=== PATIENT | male | born 1985 | race Caucasian/White ===

== ENCOUNTER → 2017-09-28 | Outpatient (CLI) | payer BC ==
[~2017-09-28] MED LIST: METFORMIN HCL500 MG PO; VICTOZA 3-0.6 MG/0.1 SQ
[2017-09-28 08:48] LABS: BASOPHILS # (AUTO) 0.1 (0.0-0.1); BASOPHILS % 0.5 % (0.0-1.0); EOSINOPHILS # (AUTO) 0.2 (0.0-0.4); EOSINOPHILS % 2.2 % (0.0-6.0); HEMATOCRIT 45.9 % (38.2-49.6); LYMPHOCYTES # (AUTO) 3.1 (1.0-3.2); LYMPHOCYTES % 30.7 % (18.0-39.1); MEAN CORPUSCULAR HEMOGLOBIN 29.6 pg (28-32); MEAN CORPUSCULAR HGB CONC 34.9 g/dL (31-35); MEAN CORPUSCULAR VOLUME 84.8 fL (81-99); MONOCYTES # (AUTO) 0.8 (0.2-0.8); MONOCYTES % 7.6 % (4.4-11.3); NEUTROPHILS % 58.6 % (38.7-80.0); PLATELET COUNT 213 x10e3/uL (140-360); RED BLOOD COUNT 5.41 x10e6/uL (4.3-5.7)
[2017-09-28 09:09] LABS: ALANINE AMINOTRANSFERASE 99 IU/L (0-55); ALBUMIN 4.1 g/dL (3.5-5.0); ALBUMIN/GLOBULIN RATIO 1.1 (0.8-2.0); ALKALINE PHOSPHATASE 86 IU/L (40-150); ANION GAP 14.1 mmol/L (8-16); BLOOD UREA NITROGEN 12 mg/dL (7-26); BUN/CREATININE RATIO 12 (6-25); CALCIUM 9.2 mg/dL (8.4-10.2); CARBON DIOXIDE 24 mmol/L (22-29); CHLORIDE 105 mmol/L (98-107); CHOL/HDL RATIO 4.7 (3.9-4.7); CHOLESTEROL 166 MD/DL (0-199); CREATININE, SERUM 0.97 mg/dL (0.72-1.25); EST GLOMERULAR FILTRATION RATE > 60 ML/MIN (60-); GLUCOSE 166 mg/dL (74-118); HDL CHOLESTEROL 35 MG/DL (40-60); LDL CHOLESTEROL 104 MG/DL (60-130); POTASSIUM 4.1 mmol/L (3.5-5.1); SODIUM 139 mmol/L (136-145); TRIGLYCERIDES 134 MG/DL (0-149)
[2017-09-28 09:29] LABS: FREE T4 (FREE THYROXINE) 1.17 ng/dL (0.9-1.8); THYROID STIMULATING HORMONE 1.579 uIU/mL (0.350-4.940)
== END ==
LOC: LAB 08:33
PROVIDERS: ATTEND Internal Medicine
DX: R53.83 Other fatigue (principal); E13.9 Other specified diabetes mellitus without complications; R74.0 Nonspecific elevation of levels of transaminase and lactic acid dehydrogenase [LDH]; E78.5 Hyperlipidemia, unspecified
CPT/HCPCS: 36415; 80053; 80061; 83036; 84439; 84443; 84479; 85025

== ENCOUNTER 2017-10-13 14:02 | Emergency (ER) | payer BC ==
[~2017-10-13] VITALS: Ht 180.3 cm; Wt 149.7 kg
[2017-10-13] MEDS ORDERED: SODIUM CHLORIDE 0.9% 1000ML 1,000 ML IV STA (14:12)
[2017-10-13] MEDS ORDERED: KETOROLAC TROMETHAMINE 30 MG/ML VIAL IV STA (14:12)
[2017-10-13] MEDS ORDERED: ONDANSETRON HCL INJ 2 MG/ML VIAL IV STA (14:12)
[2017-10-13 14:35] LABS: BILIRUBIN,URINE NEGATIVE (NEGATIVE); CLARITY,URINE CLEAR (CLEAR); COLOR,URINE YELLOW (YELLOW); KETONES,URINE NEGATIVE (NEGATIVE); LEUKOCYTE ESTERASE ,URINE NEGATIVE (NEGATIVE); NITRITE,URINE NEGATIVE (NEGATIVE); PROTEIN,URINE DIPSTICK NEGATIVE (NEGATIVE); URINE UROBILINOGEN 0.2 mg/dL (0.2 - 1)
[2017-10-13 14:42] LABS: BACTERIA,URINE RARE /HPF; RBC,URINE 0-5 /HPF (0-5); WBC,URINE (MAN) 0-5 /HPF (0-5)
[2017-10-13 14:55] LABS: BASOPHILS # (AUTO) 0.1 (0.0-0.1); BASOPHILS % 0.6 % (0.0-1.0); EOSINOPHILS # (AUTO) 0.2 (0.0-0.4); EOSINOPHILS % 1.5 % (0.0-6.0); HEMATOCRIT 47.1 % (38.2-49.6); HEMOGLOBIN 16.4 g/dL (14.0-18.0); LYMPHOCYTES # (AUTO) 3.5 (1.0-3.2); LYMPHOCYTES % 30.2 % (18.0-39.1); MEAN CORPUSCULAR HEMOGLOBIN 29.3 pg (28-32); MEAN CORPUSCULAR HGB CONC 34.8 g/dL (31-35); MEAN CORPUSCULAR VOLUME 84.1 fL (81-99); MONOCYTES # (AUTO) 0.9 (0.2-0.8); MONOCYTES % 7.8 % (4.4-11.3); NEUTROPHILS % 59.3 % (38.7-80.0); PLATELET COUNT 255 x10e3/uL (140-360)
[2017-10-13] MEDS ORDERED: MORPHINE SULFATE 5 MG/ML VIAL IV ONE (15:00)
[2017-10-13 15:06] LABS: ALANINE AMINOTRANSFERASE 134 IU/L (0-55); ALBUMIN 4.6 g/dL (3.5-5.0); ALBUMIN/GLOBULIN RATIO 1.2 (0.8-2.0); ALKALINE PHOSPHATASE 86 IU/L (40-150); ANION GAP 11.8 mmol/L (8-16); BLOOD UREA NITROGEN 12 mg/dL (7-26); BUN/CREATININE RATIO 14 (6-25); CARBON DIOXIDE 26 mmol/L (22-29); CHLORIDE 105 mmol/L (98-107); CREATININE, SERUM 0.84 mg/dL (0.72-1.25); EST GLOMERULAR FILTRATION RATE > 60 ML/MIN (60-); GLUCOSE 98 mg/dL (74-118); POTASSIUM 3.8 mmol/L (3.5-5.1); SODIUM 139 mmol/L (136-145)
[2017-10-13] MEDS ORDERED: MORPHINE SULFATE 2 MG/ML SYR IV ONE (15:20)
--- NOTE | 2017-10-13 16:06 | Diagnostic Imaging Report ---
PROCEDURE: CT ABDOMEN AND PELVIS WITHOUT CONTRAST TECHNIQUE: The abdomen and pelvis were scanned utilizing a multidetector helical scanner from the diaphragm to the lesser trochanter. No IV or oral contrast per stone protocol. Coronal and sagittal multiplanar reformations were obtained. COMPARISON: None. INDICATIONS: FLANK PAIN FINDINGS: ABSENCE OF INTRAVENOUS CONTRAST DECREASES SENSITIVITY FOR DETECTION OF FOCAL LESIONS AND VASCULAR PATHOLOGY. LOWER THORAX: Normal. HEPATOBILIARY: Diffuse hepatic steatosis. No focal hepatic lesions. No biliary ductal dilatation. SPLEEN: Moderate splenomegaly measuring 16.1 cm in AP dimension. PANCREAS: No focal masses or ductal dilatation. ADRENALS: No adrenal nodules. KIDNEYS/URETERS: No hydronephrosis, stones, or solid mass lesions. PELVIC ORGANS/BLADDER: Unremarkable. PERITONEUM / RETROPERITONEUM: No free air or fluid. LYMPH NODES: No lymphadenopathy. VESSELS: Unremarkable. GI TRACT: No distention or wall thickening. Normal appendix. BONES AND SOFT TISSUES: Unremarkable. Focal mild degenerative changes at L5-S1 with posterior disc osteophyte. Small bilateral containing inguinal hernias. IMPRESSION: 1. Diffuse hepatic steatosis. 2. Moderate splenomegaly. 3. No definite renal stones. Questionable developing stones. No hydronephrosis. Dictated by: Cheikh Pelaez M.D. on 10/13/2017 at 16:05 Electronically approved by: Cheikh Pelaez M.D. on 10/13/2017 at 16:05
[2017-10-13 16:29] VITALS: BP 121/73
== END 2017-10-13 17:02 | disposition home or self-care (01) ==
LOC: ER 14:02
DX: R10.9 Unspecified abdominal pain (principal); R11.0 Nausea; E11.9 Type 2 diabetes mellitus without complications; K75.81 Nonalcoholic steatohepatitis (NASH)
CPT/HCPCS: 36415; 74176; 80053; 81001; 85025; 96374; 99284; J1885; J2270; J2405; J7030

== ENCOUNTER → 2018-07-01 | Outpatient (CLI) | payer BC ==
[2018-07-01 09:40] LABS: BASOPHILS # (AUTO) 0.1 (0.0-0.1); BASOPHILS % 0.5 % (0.0-1.0); EOSINOPHILS # (AUTO) 0.2 (0.0-0.4); EOSINOPHILS % 2.4 % (0.0-6.0); HEMATOCRIT 46.8 % (38.2-49.6); HEMOGLOBIN 16.4 g/dL (14.0-18.0); LYMPHOCYTES # (AUTO) 2.7 (1.0-3.2); LYMPHOCYTES % 29.2 % (18.0-39.1); MEAN CORPUSCULAR HEMOGLOBIN 29.4 pg (28-32); MONOCYTES # (AUTO) 0.8 (0.2-0.8); MONOCYTES % 8.2 % (4.4-11.3); NEUTROPHILS # (AUTO) 5.5 (2.1-6.9); NEUTROPHILS % 59.4 % (38.7-80.0); PLATELET COUNT 276 x10e3/uL (140-360); RED BLOOD COUNT 5.57 x10e6/uL (4.3-5.7); RED CELL DISTRIBUTION WIDTH 12.9 % (11.7-14.4)
[2018-07-01 10:05] LABS: ALANINE AMINOTRANSFERASE 85 IU/L (0-55); ALBUMIN 4.2 g/dL (3.5-5.0); ALBUMIN/GLOBULIN RATIO 1.1 (0.8-2.0); ALKALINE PHOSPHATASE 95 IU/L (40-150); ANION GAP 14.3 mmol/L (8-16); BLOOD UREA NITROGEN 13 mg/dL (7-26); BUN/CREATININE RATIO 14 (6-25); CALCIUM 9.6 mg/dL (8.4-10.2); CARBON DIOXIDE 23 mmol/L (22-29); CHLORIDE 105 mmol/L (98-107); CREATININE, SERUM 0.93 mg/dL (0.72-1.25); EST GLOMERULAR FILTRATION RATE > 60 ML/MIN (60-); GLUCOSE 279 mg/dL (74-118); POTASSIUM 4.3 mmol/L (3.5-5.1); SODIUM 138 mmol/L (136-145)
[2018-07-01 10:27] LABS: THYROID STIMULATING HORMONE 1.149 uIU/mL (0.350-4.940)
== END ==
LOC: LAB 09:17
PROVIDERS: ATTEND Internal Medicine
DX: E13.9 Other specified diabetes mellitus without complications (principal)
CPT/HCPCS: 36415; 80053; 83036; 84436; 84443; 84479; 85025

== ENCOUNTER → 2018-07-21 | Outpatient (CLI) | payer BC | LOC: SLEEP 07-14 20:17 | PROVIDERS: ATTEND Internal Medicine | DX: G47.33 Obstructive sleep apnea (adult) (pediatric) (principal) | CPT/HCPCS: 95811 ==

== ENCOUNTER → 2020-05-15 | Outpatient (CLI) | payer BC ==
[2020-05-15 08:43] LABS: ALANINE AMINOTRANSFERASE 130 IU/L (0-55); ALBUMIN/GLOBULIN RATIO 1.1 (0.8-2.0); ALKALINE PHOSPHATASE 78 IU/L (40-150); ANION GAP 13.2 mmol/L (8-16); BLOOD UREA NITROGEN 10 mg/dL (7-26); BUN/CREATININE RATIO 11 (6-25); CALCIUM 9.1 mg/dL (8.4-10.2); CARBON DIOXIDE 25 mmol/L (22-29); CHLORIDE 105 mmol/L (98-107); CHOL/HDL RATIO 6.5 (3.9-4.7); CHOLESTEROL 234 MD/DL (0-199); CREATININE, SERUM 0.92 mg/dL (0.72-1.25); EST GLOMERULAR FILTRATION RATE > 60 ML/MIN (60-); GLUCOSE 198 mg/dL (74-118); HDL CHOLESTEROL 36 MG/DL (40-60); LDL CHOLESTEROL 149 MG/DL (60-130); POTASSIUM 4.2 mmol/L (3.5-5.1); SODIUM 139 mmol/L (136-145); TRIGLYCERIDES 245 MG/DL (0-149)
[2020-05-15 08:44] LABS: BASOPHILS % 0.5 % (0.0-1.0); EOSINOPHILS # (AUTO) 0.3 (0.0-0.4); EOSINOPHILS % 3.3 % (0.0-6.0); HEMATOCRIT 39.6 % (38.2-49.6); LYMPHOCYTES # (AUTO) 2.4 (1.0-3.2); LYMPHOCYTES % 32.4 % (18.0-39.1); MEAN CORPUSCULAR HEMOGLOBIN 34.9 pg (28-32); MEAN CORPUSCULAR HGB CONC 37.9 g/dL (31-35); MEAN CORPUSCULAR VOLUME 92.1 fL (81-99); MONOCYTES # (AUTO) 0.6 (0.2-0.8); MONOCYTES % 7.7 % (4.4-11.3); NEUTROPHILS # (AUTO) 4.2 (2.1-6.9); NEUTROPHILS % 55.8 % (38.7-80.0); PLATELET COUNT 148 x10e3/uL (140-360); RED CELL DISTRIBUTION WIDTH 16.3 % (11.7-14.4)
[2020-05-15 09:04] LABS: FREE THYROXINE INDEX 2.4486 (1.4-3.8); THYROID STIMULATING HORMONE 1.329 uIU/mL (0.350-4.940)
== END ==
LOC: LAB 07:58
PROVIDERS: ATTEND Internal Medicine
DX: E11.65 Type 2 diabetes mellitus with hyperglycemia (principal); I10 Essential (primary) hypertension; E78.5 Hyperlipidemia, unspecified; R53.83 Other fatigue; E66.01 Morbid (severe) obesity due to excess calories
CPT/HCPCS: 36415; 80053; 80061; 83036; 84436; 84443; 84479; 85025

== ENCOUNTER 2020-06-26 11:54 | Emergency (ER) | payer BC ==
[~2020-06-26] VITALS: Ht 180.3 cm; Wt 149.7 kg
--- NOTE | 2020-06-26 12:10 | Emergency Department Note ---
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 PT BEGAN HAVING SORE THROAT AND CONGESTION 5 DAYS SEASONER HAND. PT HAS NOW DEVELOPED HEADACHES AND BEGAN RUNNING FEVER TODAY. Historian: Patient Arrival Mode: Car Additional Treatment SEASONER HAND: IBUPROFEN 4 HRS SEASONER HAND Pulverizer Feeder Required: No Onset (how long ago): day(s) Location: Generalized Quality: fever Radiation: Reports non-radiation Severity: mild Onset quality: sudden Duration (how long): day(s) Timing of current episode: constant Progression: unchanged Chronicity: new Context: Denies recent illness, Denies recent surgery Relieving factors: none Exacerbating factors: none Associated symptoms: Reports denies other symptoms Treatments prior to arrival: none Past Medical/Family History Physician Review I have reviewed the patient's past medical and family history. Any updates have been documented here. Past Medical History Recent Fever: Yes Clinical Suspicion of Infectio: No New/Unexplained Change in Ment: No Other Medical History: SANDOVAL Other Surgery: TONSILLECTOMY Other Last Tetanus: UTD Review of Systems Review of Systems Constitutional: Reports fever EENTM: Reports no symptoms Cardiovascular: Reports no symptoms Respiratory: Reports no symptoms Gastrointestinal: Reports no symptoms Genitourinary: Reports no symptoms Musculoskeletal: Reports no symptoms Integumentary: Reports no symptoms Neurological: Reports no symptoms Psychological: Reports no symptoms Endocrine: Reports no symptoms Hematological/Lymphatic: Reports no symptoms Physical Exam Related Data Allergies: Coded Allergies: cefaclor (Verified Allergy, Unknown, 10/13/17) sulfamethoxazole (Verified Allergy, Unknown, 10/13/17) trimethoprim (Verified Allergy, Unknown, 10/13/17) Triage Vital Signs Vital Signs Date Time Temp Pulse Resp B/P (MAP) Pulse Ox O2 Delivery O2 Flow Rate FiO2 06/26/20 11:56 99.9 72 20 128/87 99 Room Air Vital signs reviewed: Yes Physical Exam CONSTITUTIONAL Constitutional: Present well-developed, Present well-nourished HENT HENT: Present normocephalic, Present atraumatic, Present oropharynx clear/moist, Present nose normal HENT L/R: Present left ext ear normal, Present right ext ear normal EYES Eyes: Reports PERRL, Reports conjunctivae normal NECK Neck: Present ROM normal PULMONARY Pulmonary: Present effort normal, Present breath sounds normal CARDIOVASCULAR Cardiovascular: Present regular rhythm, Present heart sounds normal, Present capillary refill normal, Present normal rate GASTROINTESTINAL Abdominal: Present soft, Present nontender, Present bowel sounds normal GENITOURINARY Genitourinary: Present exam deferred SKIN Skin: Present warm, Present dry MUSCULOSKELETAL Musculoskeletal: Present ROM normal NEUROLOGICAL Neurological: Present alert, Present oriented x 3, Present no gross motor or sensory deficits PSYCHOLOGICAL Psychological: Present mood/affect normal, Present judgement normal Assessment & Plan Medical Decision Making MDM 34-year-old male with past medical history significant for diabetes presents to the emergency department for fever. Concern for coronavirus due to high risk exposures at work. Will cope and swab him and if positive will enroll in antibody study. Patient appears well, vital signs stable, within except limits. He will not require hospitalization and he is appropriate for discharge. Assessment & Plan Final Impression: (1) Fever Depart Disposition: HOME, SELF-CARE Last Vital Signs Date Time Temp Pulse Resp B/P (MAP) Pulse Ox O2 Delivery O2 Flow Rate FiO2 06/26/20 11:56 99.9 72 20 128/87 99 Room Air Home Meds Reported Medications Metformin Hcl (METFORMIN HCL) 500 Mg Tablet, 1000 MG PO BID, #60 TAB 05/16/14 Liraglutide (VICTOZA 3-ZAY) 0.6 Mg/0.1 Ml Pen.injctr, 1 DOSE SQ DAILY 05/16/14 LIZBETH COTE MD Jun 26, 2020 12:10
--- OUTSIDE RECORDS SUMMARY | 2020-06-26 12:13 | XMS REPORT | Continuity of Care Document ---
Author Author [facility] t Organization [facility] Address [address] [place] [address] Phone Unavailable Care Team Providers Care Development And Planning Engineer Name Role Phone DOMONIQUE FU MD PCP Linda HOLT Attphyrebeca Unavailable Payers Payer Name Policy Type Policy Number Effective Date Expiration Date Rebeca redmond [facility] [id number] 2013 00:00:00 [facility] Problems This patient has no known problems. Allergies, Adverse Reactions, Alerts Allergy Name Allergy Type Status Severity Reaction(s) Onset Date Inacti ve Date Treating Clinician Comments Source Cefaclor Allergy to Substance Active 2017-10-13 00:00:00 [facility] Sulfamethoxazole Allergy to Substance Active 2017-10-13 00: 00:00 [facility] Trimethoprim Allergy to Substance Active 2017-10-13 00:00:0 0 [facility] Medications Ordered Medication Name Filled Medication Name Start Date Stop Da te Current Medication? Ordering Clinician Indication Dosage Frequency Signature (SIG) Comments Components Source Liraglutide (Victoza 3-Fernando) 0.6 Mg/0.1 Ml Pen.injctr L iraglutide (Victoza 3-Fernando) 0.6 Mg/0.1 Ml Pen.injctr Yes 1 Daily [facility] Metformin Hcl 500 Mg Tablet Metformin Hcl 500 Mg Tablet Yes 1000 Twice A Day [facility] Procedures Procedure Date / Time Performed Performing Clinician Ata e CT of abdomen and pelvis without contrast 2017-10-13 00:00:00 KATARZYNA ESTRADA [facility] Encounters Start Date/Time End Date/Time Encounter Type Admission Type Attendi [facility] Facility Care Department Encounter ID Source 2017-10-13 14:02:00 2017-10-13 17:02:00 Departed Emergency Room ER ALESSANDRA HOLT [facility] [id number] [facility] 2017-09-28 08:33:00 2017-09-28 08:33:00 Registered Clinic [facility] [id number] [facility] Results Test Description Test Time Test Comments Results Result Comments Source Sodium Level 2017-10-13 15:08:00 Test Item Sodium Level (test code = 2951-2) 139 136-145 [facility]Potassium Oiaeq7575-92-42 15:08:00* Test Item Value Reference Range Interpretation Comments Potassium Level (test code = 2823-3) 3.8 3.5-5.1 [facility]Chloride Xvewl5508-87-24 15:08:00* Test Item Value Reference Range Interpretation Comments Chloride Level (test code = 2075-0) 105 98-107 [facility] HospitalCarbon Dioxide Jtsya2447-04-55 15:08:00* Test Item Value Reference Range Interpretation Comments Carbon Dioxide Level (test code = 2028-9) 26 22-29 [facility] HospitalAnion Oju6022-74-94 15:08:00* Test Item Value Reference Range Interpretation Comments Anion Gap (test code = 64266-3) 11.8 8-16 [facility] HospitalBlood Urea Kgcxgtkd6327-47-63 15:08:00* Test Item Value Reference Range Interpretation Comments Blood Urea Nitrogen (test code = 3094-0) 12 7-26 [facility] HospitalCreatinine2018-03-14 15:08:00* Test Item Value Reference Range Interpretation Comments Creatinine (test code = 2160-0) 0.84 0.72-1.25 [facility] HospitalBUN/Creatinine Llrav9344-89-31 15:08:00* Test Item Value Reference Range Interpretation Comments BUN/Creatinine Ratio (test code = 3097-3) 14 6-25 [facility] HospitalEstimat Glomerular Filtration Rate 2017-10-13 15:08:00* Test Item Value Reference Range Interpretation Comments Estimat Glomerular Filtration Rate (test code = 97974-0) 60- >60 Ranges were taken from the National Kidney Disease Education Program and the [facility] [employer] literature.Reference ranges:60 or greater: Nqbeeo28-48 ( for 3 consecutive months): Chronic kidney disease 15 or less: Kidney failureThe [facility] HospitalGlucose Hkugi4749-75-23 15:08:00* Test Item Value Reference Range Interpretation Comments Glucose Level (test code = BJC9516) 98 74-118 [facility] HospitalCalcium Ccrrs7791-50-94 15:08:00* Test Item Value Reference Range Interpretation Comments Calcium Level (test code = 61425-9) 9.0 8.4-10.2 [facility] HospitalTotal Vaizujtqu7789-40-06 15:08:00* Test Item Value Reference Range Interpretation Comments Total Bilirubin (test code = 1975-2) 1.0 0.2-1.2 [facility] HospitalAspartate Amino Transf (AST/SGOT) 2017-10-13 15:08:00* Test Item Value Reference Range Interpretation Comments Aspartate Amino Transf (AST/SGOT) (test code = Aspartate Amino Transf (AST/SGOT)) 64 5-34 H [facility] HospitalAlanine Aminotransferase (ALT/SGPT) 2017-10-13 15:08:00* Test Item Value Reference Range Interpretation Comments Alanine Aminotransferase (ALT/SGPT) (test code = 1742-6) 134 0-55 H [facility] HospitalTotal Kmcycgb5073-61-90 15:08:00* Test Item Value Reference Range Interpretation Comments Total Protein (test code = 2885-2) 8.3 6.5-8.1 H [facility] HospitalAlbumin2018-03-14 15:08:00* Test Item Value Reference Range Interpretation Comments Albumin (test code = 1751-7) 4.6 3.5-5.0 [facility] HospitalGlobulin2018-03-14 15:08:00* Test Item Value Reference Range Interpretation Comments Globulin (test code = 60413-5) 3.7 2.3-3.5 H [facility] HospitalAlbumin/Globulin Ybsjb4052-26-27 15:08:00 * Test Item Value Reference Range Interpretation Comments Albumin/Globulin Ratio (test code = 1759-0) 1.2 0.8-2.0 [facility] HospitalAlkaline Ajzrepeuegg2876-04-21 15:08:00* Test Item Value Reference Range Interpretation Comments Alkaline Phosphatase (test code = 6768-6) 86 40-150 [facility] HospitalWhite Blood Sxbeq7380-73-50 14:55:00* Test Item Value Reference Range Interpretation Comments White Blood Count (test code = 6690-2) 11.73 4.8-10.8 H [facility] HospitalRed Blood Oivfh9061-95-00 14:55:00* Test Item Value Reference Range Interpretation Comments Red Blood Count (test code = 789-8) 5.60 4.3-5.7 [facility] HospitalHemoglobin2018-03-14 14:55:00* Test Item Value Reference Range Interpretation Comments Hemoglobin (test code = 51776-4) 16.4 14.0-18.0 [facility] HospitalHematocrit2018-03-14 14:55:00* Test Item Value Reference Range Interpretation Comments Hematocrit (test code = 4544-3) 47.1 38.2-49.6 [facility] HospitalMean Corpuscular Lzjyer4143-64-03 14:55:00* Test Item Value Reference Range Interpretation Comments Mean Corpuscular Volume (test code = 787-2) 84.1 81-99 [facility] HospitalMean Corpuscular Edcyyfoage1460-23-30 14:55:00* Test Item Value Reference Range Interpretation Comments Mean Corpuscular Hemoglobin (test code = 785-6) 29.3 28-32 [facility] HospitalMean Corpuscular Hemoglobin Concent 2017-10-13 14:55:00* Test Item Value Reference Range Interpretation Comments Mean Corpuscular Hemoglobin Concent (test code = 786-4) 34.8 31-35 [facility] HospitalRed Cell Distribution Cjlqz6870-25-11 14:55:00* Test Item Value Reference Range Interpretation Comments Red Cell Distribution Width (test code = 31345-0) 13.0 11.7 -14.4 [facility] HospitalPlatelet Hyomp8425-00-05 14:55:00* Test Item Value Reference Range Interpretation Comments Platelet Count (test code = 777-3) 255 140-360 [facility] HospitalNeutrophils (%) (Auto)2017-10-13 14:55:00 * Test Item Value Reference Range Interpretation Comments Neutrophils (%) (Auto) (test code = 40834-9) 59.3 38.7-80.0 [facility] HospitalLymphocytes (%) (Auto)2017-10-13 14:55:00 * Test Item Value Reference Range Interpretation Comments Lymphocytes (%) (Auto) (test code = 736-9) 30.2 18.0-39.1 [facility] HospitalMonocytes (%) (Auto)2017-10-13 14:55:00* Test Item Value Reference Range Interpretation Comments Monocytes (%) (Auto) (test code = 5905-5) 7.8 4.4-11.3 [facility] HospitalEosinophils (%) (Auto)2017-10-13 14:55:00 * Test Item Value Reference Range Interpretation Comments Eosinophils (%) (Auto) (test code = 713-8) 1.5 0.0-6.0 [facility] HospitalBasophils (%) (Auto)2017-10-13 14:55:00* Test Item Value Reference Range Interpretation Comments Basophils (%) (Auto) (test code = 706-2) 0.6 0.0-1.0 [facility] HospitalIM GRANULOCYTES %2017-10-13 14:55:00* Test Item Value Reference Range Interpretation Comments IM GRANULOCYTES % (test code = IM GRANULOCYTES %) 0.6 0.0- 1.0 [facility] HospitalNeutrophils # (Auto)2017-10-13 14:55:00* Test Item Value Reference Range Interpretation Comments Neutrophils # (Auto) (test code = 751-8) 7.0 2.1-6.9 H [facility] HospitalLymphocytes # (Auto)2017-10-13 14:55:00* Test Item Value Reference Range Interpretation Comments Lymphocytes # (Auto) (test code = 51201-7) 3.5 1.0-3.2 H [facility] HospitalMonocytes # (Auto)2017-10-13 14:55:00* Test Item Value Reference Range Interpretation Comments Monocytes # (Auto) (test code = 742-7) 0.9 0.2-0.8 H [facility] HospitalEosinophils # (Auto)2017-10-13 14:55:00* Test Item Value Reference Range Interpretation Comments Eosinophils # (Auto) (test code = 711-2) 0.2 0.0-0.4 [facility] HospitalBasophils # (Auto)2017-10-13 14:55:00* Test Item Value Reference Range Interpretation Comments Basophils # (Auto) (test code = 704-7) 0.1 0.0-0.1 [facility] HospitalAbsolute Immature Granulocyte (auto 2017-10-13 14:55:00* Test Item Value Reference Range Interpretation Comments Absolute Immature Granulocyte (auto (shira t code = Absolute Immature Granulocyte (auto) 0.07 0-0.1 [facility] HospitalUrine RCK6690-01-88 14:42:00* Test Item Value Reference Range Interpretation Comments Urine WBC (test code = 5821-4) 0-5 0-5 [facility] HospitalUrine RTW1552-92-18 14:42:00* Test Item Value Reference Range Interpretation Comments Urine RBC (test code = 00736-4) 0-5 0-5 [facility] HospitalUrine Nmndqbjl7669-18-73 14:42:00* Test Item Value Reference Range Interpretation Comments Urine Bacteria (test code = 69862-5) RARE NONE [facility] HospitalUrine Epithelial Lpjvi3019-53-87 14:42:00 * Test Item Value Reference Range Interpretation Comments Urine Epithelial Cells (test code = 17997-2) NONE NONE [facility] HospitalUrine Vbsrw7922-91-01 14:37:00* Test Item Value Reference Range Interpretation Comments Urine Color (test code = 5778-6) YELLOW YELLOW [facility] HospitalUrine Wdfwopf4971-38-59 14:37:00* Test Item Value Reference Range Interpretation Comments Urine Clarity (test code = 42517-3) CLEAR CLEAR [facility] HospitalUrine Specific Lpsovpg8825-86-36 14:37:00 * Test Item Value Reference Range Interpretation Comments Urine Specific [place] (test code = 5811-5) 1.015 1.010-1.02 5 [facility] HospitalUrine qE4193-13-59 14:37:00* Test Item Value Reference Range Interpretation Comments Urine pH (test code = 53784-5) 5 5-7 [facility] HospitalUrine Leukocyte Knjffgtf9789-28-26 14:37:00* Test Item Value Reference Range Interpretation Comments Urine Leukocyte Esterase (test code = 5799-2) NEGATIVE NEGATIVE [facility] Wfxdtum1212-32-32 14:37:00* Test Item Value Reference Range Interpretation Comments Urine Nitrite (test code = 94996-2) NEGATIVE NEGATIVE [facility] HospitalUrine Brssosu5284-01-64 14:37:00* Test Item Value Reference Range Interpretation Comments Urine Protein (test code = 5804-0) NEGATIVE NEGATIVE [facility] HospitalUrine Glucose (UA)2017-10-13 14:37:00* Test Item Value Reference Range Interpretation Comments Urine Glucose (UA) (test code = 2349-9) 3+ NEGATIVE H [facility] HospitalUrine Yhzgejl6054-16-50 14:37:00* Test Item Value Reference Range Interpretation Comments Urine Ketones (test code = 44340-9) NEGATIVE NEGATIVE [facility] HospitalUrine Vzkdqwlehhkp1414-09-63 14:37:00* Test Item Value Reference Range Interpretation Comments Urine Urobilinogen (test code = 77743-9) 0.2 0.2-1 [facility] HospitalUrine Pkbkncfqq7914-96-12 14:37:00* Test Item Value Reference Range Interpretation Comments Urine Bilirubin (test code = 1978-6) NEGATIVE NEGATIVE [facility] HospitalUrine Xphvw3401-01-77 14:37:00* Test Item Value Reference Range Interpretation Comments Urine Blood (test code = 46209-4) NEGATIVE NEGATIVE [facility] HospitalFree Kwmnutvye5038-53-46 09:32:00* Test Item Value Reference Range Interpretation Comments Free Thyroxine (test code = 3024-7) 1.17 0.9-1.8 [facility] HospitalTriiodothyronine (T3) Kljxjm4639-38-11 09:32:00* Test Item Value Reference Range Interpretation Comments Triiodothyronine (T3) Uptake (test code = 3050-2) 25.14 22.5 -37.0 [facility] HospitalThyroid Stimulating Hormone (TSH) 2017-09-28 09:32:00* Test Item Value Reference Range Interpretation Comments Thyroid Stimulating Hormone (TSH) (test code = 30148-6) 1.579 0.350-4.940 [facility] HospitalTriglycerides Evejh5021-80-10 09:10:00* Test Item Value Reference Range Interpretation Comments Triglycerides Level (test code = 2571-8) 134 0-149 [facility] HospitalCholesterol Dopan7279-44-14 09:10:00* Test Item Value Reference Range Interpretation Comments Cholesterol Level (test code = 2093-3) 166 0-199 Less than 200 mg/dL Low Memp836 - 239 mg/dL Borderline Qgar300 m g/dl and greater High Risk [facility] HospitalLDL Dheljduzljs5134-11-78 09:10:00* Test Item Value Reference Range Interpretation Comments LDL Cholesterol (test code = 2089-1) 104 60-130 [facility] HospitalHDL Kwzdnqgtuab5188-08-62 09:10:00* Test Item Value Reference Range Interpretation Comments HDL Cholesterol (test code = 2085-9) 35 40-60 L [facility] HospitalCholesterol/HDL Zgqme1157-68-29 09:10:00 * Test Item Value Reference Range Interpretation Comments Cholesterol/HDL Ratio (test code = 9830-1) 4.7 3.9-4.7 [facility] HospitalHemoglobin A1c Mupthck5076-29-52 09:03:00 * Test Item Value Reference Range Interpretation Comments Hemoglobin A1c Percent (test code = Hemoglobin A1c Percent) 7.9 4.0-7.0 [facility] [address] [address] Patient Name: DEBRA DAN MR #: [id number] : 1985 Age/Sex: 32/M Req #: [id number] Adm Physician: Ordered by: KATARZYNA MANCINI DIRECTOR [place] Report #: [id number] Location: ER Room/Bed: Procedure: [id number] CT/CT ABDOMEN/PELVIS WO Exam D ate: 10/13/17 Exam Time: 1542 REPORT STATUS: Si gned PROCEDURE: CT ABDOMEN AND PELVIS WITHOUT CONTRAST TECHNIQUE: e abdomen and pelvis were scanned utilizing a multidetector helical scanner f rom the diaphragm to the lesser trochanter. No IV or oral contrast per stone protocol. Coronal and sagittal multiplanar reformations were obtained. COMPARISON: None. INDICATIONS: FLANK PAIN FINDINGS: ABSENC E OF INTRAVENOUS CONTRAST DECREASES SENSITIVITY FOR DETECTION OF FOCAL LESION S AND VASCULAR PATHOLOGY. LOWER THORAX: Normal. HEPATOBILIARY: Diffu se hepatic steatosis. No focal hepatic lesions. No biliary ductal dilatation . SPLEEN: Moderate splenomegaly measuring 16.1 cm in AP dimension. PANCREAS: No focal masses or ductal dilatation. ADRENALS: No adrenal nodules. KID NEYS/URETERS: No hydronephrosis, stones, or solid mass lesions. PELVIC ORGANS/ BLADDER: Unremarkable. PERITONEUM / RETROPERITONEUM: No free air or fluid. LYMPH NODES: No lymphadenopathy. VESSELS: Unremarkable. GI TRACT: No distention or wall thickening. Normal appendix. BONES AND SOFT TISSUES: Un remarkable. Focal mild degenerative changes at L5-S1 with posterior disc oste ophyte. Small bilateral containing inguinal hernias. IMPRESSION: 1. Diffuse hepatic steatosis. 2. Moderate splenomegaly. 3. No definite renal stones. Questionable developing stones. No hydronephrosis. Dictated b y: George Oscar M.D. on 10/13/2017 at 16:05 Electronically approved by: George Oscar M.D. on 10/13/2017 at 16:05 Dictated By: GEORGE OSCAR MD [facility] icall Signed By: GEORGE OSCAR MD on 10/13/17 1606 Transcribed By: KAITLIN on 10/13/17 1605 COPY TO: KATARZYNA MANCINI NP
== END 2020-06-26 13:40 | disposition home or self-care (01) ==
LOC: ER 12:07
DX: R50.9 Fever, unspecified (principal); Z20.828 Contact with and (suspected) exposure to other viral communicable diseases; I10 Essential (primary) hypertension; E11.9 Type 2 diabetes mellitus without complications; K75.81 Nonalcoholic steatohepatitis (NASH)
CPT/HCPCS: 87400; 99282; U0002

== ENCOUNTER → 2020-07-30 | Outpatient (CLI) | payer OTHER ==
[~2020-07-30] MED LIST changes: +COVID-19 VACC, MRNA(MODERNA)/PF 100 MCG/0.5 ML VIAL IM ONE
== END ==
LOC: VACCPMC 13:40
DX: Z23 Encounter for immunization (principal); Z20.828 Contact with and (suspected) exposure to other viral communicable diseases

== ENCOUNTER → 2020-09-03 | Outpatient (CLI) | payer OTHER ==
[~2020-09-03] MED LIST changes: -COVID-19 VACC, MRNA(MODERNA)/PF 100 MCG/0.5 ML VIAL IM ONE
[2020-09-03 09:06] LABS: BASOPHILS # (AUTO) 0.1 (0.0-0.1); BASOPHILS % 0.7 % (0.0-1.0); EOSINOPHILS # (AUTO) 0.2 (0.0-0.4); EOSINOPHILS % 3.1 % (0.0-6.0); HEMATOCRIT 41.8 % (38.2-49.6); HEMOGLOBIN 14.4 g/dL (14.0-18.0); LYMPHOCYTES # (AUTO) 2.4 (1.0-3.2); MEAN CORPUSCULAR HEMOGLOBIN 30.2 pg (28-32); MEAN CORPUSCULAR HGB CONC 34.4 g/dL (31-35); MEAN CORPUSCULAR VOLUME 87.6 fL (81-99); MONOCYTES # (AUTO) 0.6 (0.2-0.8); MONOCYTES % 7.7 % (4.4-11.3); NEUTROPHILS # (AUTO) 3.9 (2.1-6.9); NEUTROPHILS % 54.2 % (38.7-80.0); PLATELET COUNT 219 x10e3/uL (140-360); RED BLOOD COUNT 4.77 x10e6/uL (4.3-5.7); RED CELL DISTRIBUTION WIDTH 13.2 % (11.7-14.4)
[2020-09-03 09:40] LABS: ALANINE AMINOTRANSFERASE 65 IU/L (0-55); ALBUMIN 4.2 g/dL (3.5-5.0); ALBUMIN/GLOBULIN RATIO 1.1 (0.8-2.0); ALKALINE PHOSPHATASE 53 IU/L (40-150); ANION GAP 13.4 mmol/L (8-16); BLOOD UREA NITROGEN 10 mg/dL (7-26); BUN/CREATININE RATIO 10 (6-25); CALCIUM 8.7 mg/dL (8.4-10.2); CARBON DIOXIDE 26 mmol/L (22-29); CHLORIDE 106 mmol/L (98-107); CREATININE, SERUM 0.98 mg/dL (0.72-1.25); EST GLOMERULAR FILTRATION RATE > 60 ML/MIN (60-); GLUCOSE 136 mg/dL (74-118); POTASSIUM 4.4 mmol/L (3.5-5.1); SODIUM 141 mmol/L (136-145)
== END ==
LOC: LAB 08:54
PROVIDERS: ATTEND Internal Medicine
DX: E13.9 Other specified diabetes mellitus without complications (principal); R53.83 Other fatigue
CPT/HCPCS: 36415; 80053; 83036; 84436; 84480; 85025

== ENCOUNTER → 2020-09-06 | Outpatient (CLI) | payer OTHER ==
[~2020-09-06] MED LIST changes: +COVID-19 VACC, MRNA(MODERNA)/PF 100 MCG/0.5 ML VIAL IM ONE
== END | DRG 951 ==
LOC: VACCPMC 07:41
DX: Z23 Encounter for immunization (principal); Z20.822 Contact with and (suspected) exposure to COVID-19
CPT/HCPCS: 0012A; 91301

== ENCOUNTER → 2021-05-09 | Outpatient (CLI) | payer OTHER ==
[~2021-05-09] MED LIST changes: -COVID-19 VACC, MRNA(MODERNA)/PF 100 MCG/0.5 ML VIAL IM ONE
[2021-05-09 09:58] LABS: BASOPHILS % 0.4 % (0.0-1.0); EOSINOPHILS # (AUTO) 0.2 (0.0-0.4); HEMATOCRIT 42.9 % (38.2-49.6); HEMOGLOBIN 14.8 g/dL (14.0-18.0); LYMPHOCYTES # (AUTO) 2.1 (1.0-3.2); LYMPHOCYTES % 30.2 % (18.0-39.1); MEAN CORPUSCULAR HGB CONC 34.5 g/dL (31-35); MEAN CORPUSCULAR VOLUME 86.8 fL (81-99); MONOCYTES # (AUTO) 0.6 (0.2-0.8); MONOCYTES % 7.8 % (4.4-11.3); NEUTROPHILS # (AUTO) 4.1 (2.1-6.9); PLATELET COUNT 217 x10e3/uL (140-360); RED BLOOD COUNT 4.94 x10e6/uL (4.3-5.7); RED CELL DISTRIBUTION WIDTH 12.9 % (11.7-14.4)
[2021-05-09 10:31] LABS: ALBUMIN 4.1 g/dL (3.5-5.0); ALBUMIN/GLOBULIN RATIO 1.2 (0.8-2.0); ANION GAP 12.9 mmol/L (8-16); CALCIUM 8.8 mg/dL (8.4-10.2); CHOL/HDL RATIO 5.4 (3.9-4.7); CREATININE, SERUM 1.11 mg/dL (0.72-1.25); POTASSIUM 3.9 mmol/L (3.5-5.1)
[2021-05-09 10:55] LABS: THYROID STIMULATING HORMONE 0.85 uIU/mL (0.350-4.940)
== END ==
LOC: LAB 09:44
PROVIDERS: ATTEND Internal Medicine
DX: E11.9 Type 2 diabetes mellitus without complications (principal); E66.9 Obesity, unspecified
CPT/HCPCS: 36415; 80053; 80061; 83036; 84436; 84443; 84480; 85025